=== PATIENT | female | born 1980 | race Hispanic/Latino ===

== ENCOUNTER 2022-02-26 14:02 | Outpatient (CLI) | payer BC | END 2022-02-26 14:03 | disposition home or self-care (01) | LOC: DTY/OP 14:02 | PROVIDERS: ATTEND Specialist | DX: E66.01 Morbid (severe) obesity due to excess calories (principal) | CPT/HCPCS: 97802 ==

== ENCOUNTER 2022-03-22 08:30 | Inpatient (IN) | payer BC ==
[2022-04-06] MEDS ORDERED: Acetaminophen 500 MG TAB ONE (06:30)
[2022-04-06] MEDS ORDERED: Heparin 5,000 UNITS/ML VIAL ONE (06:31)
[2022-04-06] MEDS ORDERED: Ketorolac Tromethamine 30 MG/ML VIAL ONE (06:31)
[2022-04-06] MEDS ORDERED: EPINEPHrine 1 MG/ML AMP ONE (06:54)
[2022-04-06] MEDS ORDERED: Bupivacaine 0.25% HCL 30 ML VIAL ONE (06:54)
[2022-04-06] MEDS ORDERED: Midazolam HCl 2 mg/2 ml Vial ONE (07:25)
[2022-04-06] MEDS ORDERED: fentaNYL Citrate/PF 100 MCG/2 ML SYRINGE ONE (07:26)
[2022-04-06] MEDS ORDERED: HYDROmorphone 2 MG/ML VIAL ONE (07:26)
[2022-04-06] MEDS ORDERED: Propofol 500 MG/50 ML VIAL ONE (07:38)
[2022-04-06] MEDS ORDERED: Sodium Chloride 0.9% 100 ML ONE (07:52)
[2022-04-06] MEDS ORDERED: cefOXitin 2 GM VIAL ONE (07:52)
[2022-04-06] MEDS ORDERED: Glycopyrrolate 0.2 MG/ML 5 ML SYRINGE ONE (08:15)
[2022-04-06] MEDS ORDERED: Phenylephrine 10 MG/ML VIAL ONE (08:15)
[2022-04-06] MEDS ORDERED: PROPOFOL 200 MG/20 ML VIAL ONE (08:15)
[2022-04-06] MEDS ORDERED: Dexamethasone 20 MG/5 ML VIAL ONE (08:15)
[2022-04-06] MEDS ORDERED: Lidocaine 1% PF 5 ML VIAL ONE (08:15)
[2022-04-06] MEDS ORDERED: Rocuronium Bromide 10 MG/ML (10ML VIAL) ONE (08:15)
[2022-04-06] MEDS ORDERED: Ondansetron PF 4 MG/2 ML Vial ONE (08:15)
[2022-04-06] MEDS ORDERED: Meperidine HCl/PF 25 MG/ML VIAL SLOW IVP PRN (10:14)
[2022-04-06] MEDS ORDERED: Promethazine HCl 25 MG/ML VIAL IVPB PRN (10:14)
[2022-04-06] MEDS ORDERED: HYDROmorphone 2 MG/ML VIAL SLOW IVP PRN (10:14)
[2022-04-06] MEDS ORDERED: Fentanyl 100 MCG/2 ML VIAL ONE (10:27)
[2022-04-06] MEDS ORDERED: Promethazine HCl 25 MG/ML VIAL IM PRN (11:39)
[2022-04-06] MEDS ORDERED: Dextrose 5% in Water 1,000 ML IV PRN (11:39)
[2022-04-06] MEDS ORDERED: hydrALAZINE 20 MG/ML VIAL SLOW IVP PRN (11:39)
[2022-04-06] MEDS ORDERED: Dextrose 50% Abboject 50 ML SYRINGE SLOW IVP PRN (11:39)
[2022-04-06] MEDS ORDERED: Pantoprazole 40 MG VIAL IVP SCH (11:39)
[2022-04-06] MEDS ORDERED: Ondansetron PF 4 MG/2 ML Vial IVP PRN (11:39)
[2022-04-06] MEDS ORDERED: Morphine 2 MG/ML VIAL SLOW IVP PRN (11:39)
[2022-04-06] MEDS ORDERED: diphenhydrAMINE 50 MG/ML VIAL IVP PRN (11:39)
[2022-04-06] MEDS ORDERED: Morphine 4 MG/ML VIAL SLOW IVP PRN (11:39)
[2022-04-06] MEDS ORDERED: Metoprolol Tartrate 25 MG TAB PO SCH (13:30)
[2022-04-06] MEDS: D5 1/2 NS w/20 mEq KCL 1,000 ML IV SCH ×2 (13:58→22:15)
[2022-04-06] MEDS: Ketorolac Tromethamine 30 MG/ML VIAL IVP SCH ×2 (13:59→20:09)
[2022-04-06] MEDS: Hydrocodone-Acetamin 15 ML UDCUP PO PRN ×2 (16:44→20:22)
[2022-04-06 17:13] VITALS: BMI 38.2
[2022-04-06] MEDS: Metoprolol Tartrate 25 MG TAB PO SCH (20:12)
[2022-04-06] MEDS ORDERED: Enoxaparin Sodium 40 MG/0.4 ML SYRINGE SC SCH (21:00)
[2022-04-07] MEDS: Ketorolac Tromethamine 30 MG/ML VIAL IVP SCH ×2 (02:22→08:19)
[2022-04-07] MEDS: Hydrocodone-Acetamin 15 ML UDCUP PO PRN ×3 (04:25→12:12)
[2022-04-07] MEDS: D5 1/2 NS w/20 mEq KCL 1,000 ML IV SCH ×2 (05:55→11:49)
[2022-04-07 06:17] LABS: #Lymphocytes 1.3 thou/uL (1.20-3.40); #Monocytes 0.9 thou/uL (0.11-0.59); #Neutrophils 12.9 thou/uL (1.40-6.50); %Eosinophils 0.1 % (0.0-10.0); %Lymphocytes 8.6 % (21.0-51.0); %Monocytes 5.6 % (0.0-10.0); %Neutrophils 85.6 % (42.0-75.0); Hemoglobin 11.8 g/dL (12.0-16.0); Mean Corpuscular HGB CONC 32.4 g/dL (32.0-36.0); Mean Corpuscular Hemoglobin 28.2 pg (27.0-31.0); Mean Platelet Volume 8.5 fL (7.4-10.4); Platelet Count 337 thou/uL (130-400); RBC Distribution Width 14.1 % (11.5-14.5); Red Blood Cell (RBC) Count 4.19 mill/uL (4.20-5.40)
[2022-04-07 06:41] LABS: Anion Gap 11 mmol/L (10-20); BUN (Urea Nitrogen) 4 mg/dL (7.0-18.7); Calc. Creatinine Clearance 150 mL/min (70-130); Calcium 8.2 mg/dL (7.8-10.44); Carbon Dioxide 22 mmol/L (22-29); Chloride 106 mmol/L (98-107); Glucose 154 mg/dL (70-105); Potassium 4.2 mmol/L (3.5-5.1); Sodium 135 mmol/L (136-145)
[2022-04-07] MEDS: Metoprolol Tartrate 25 MG TAB PO SCH (08:18)
[2022-04-07] MEDS ORDERED: NORETHINDRONE 0.35 MG PO SCH (09:00)
[2022-04-07 11:19] VITALS: BP 104/72; TEMP 97.8
== END 2022-04-07 12:55 | disposition home or self-care (01) | DRG 621 ==
LOC: EDSTATUS 03-25 08:30 → SURG A 04-06 06:09
PROVIDERS: ADMIT Specialist; ATTEND Specialist
PROC: 0DB64Z3 Excision of Stomach, Percutaneous Endoscopic Approach, Vertical (ICD-10-PCS; principal; 2022-04-06)
DX: E66.01 Morbid (severe) obesity due to excess calories (principal); Z68.38 Body mass index [BMI] 38.0-38.9, adult; E03.9 Hypothyroidism, unspecified; K21.9 Gastro-esophageal reflux disease without esophagitis; E04.1 Nontoxic single thyroid nodule; I10 Essential (primary) hypertension; D64.9 Anemia, unspecified; Z20.822 Contact with and (suspected) exposure to COVID-19; Z88.2 Allergy status to sulfonamides; Z98.891 History of uterine scar from previous surgery; Z88.8 Allergy status to other drugs, medicaments and biological substances; Z80.42 Family history of malignant neoplasm of prostate; Z79.899 Other long term (current) drug therapy; Z82.49 Family history of ischemic heart disease and other diseases of the circulatory system; Z83.3 Family history of diabetes mellitus; Z72.89 Other problems related to lifestyle; Z79.890 Hormone replacement therapy
CPT/HCPCS: 36415; 80048; 85025; 88307; 88312; J0171; J0694; J1100; J1170; J1644; J1650; J1885; J2250; J2370; J2405; J2704; J3010; J3480; J3490; S0020

== ENCOUNTER 2022-04-01 11:55 | Outpatient (CLI) | payer BC ==
[2022-04-01 14:43] LABS: #Basophils 0.1 10x3/uL (0.0-0.2); #Eosinphils 0.1 10x3/uL (0.0-0.5); %Basophils 0.6 % (0.0-2.0); %Eosinophils 1.5 % (0.0-6.0); %Monocytes 11.5 % (0.0-10.0); %Neutrophils 57.8 % (40.0-75.0); Hemoglobin 12.5 g/dL (12.0-15.5); Mean Corpuscular HGB CONC 32.5 g/dL (32.0-36.0); Mean Corpuscular Volume 83.2 fl (81.6-98.3); Mean Platelet Volume 10.9 fl (7.4-10.4); Platelet Count 390 10x3/uL (150-450); RBC Distribution Width 15.2 % (11.5-14.5); Red Blood Cell (RBC) Count 4.63 10x6/uL (3.90-5.03); White Blood Cell (WBC) Count 8.6 10x3/uL (3.5-10.5)
[2022-04-01 14:56] LABS: BHCG - Serum Negative (NEGATIVE); Pregs Control Bar Appear? YES (CONTROL BAR)
[2022-04-01 14:57] LABS: Pregs Control Background? CLEAR/WHITE (CLR/WHITE)
[2022-04-01 14:58] LABS: Anion Gap 12 mmol/L (10-20); BUN (Urea Nitrogen) 16 mg/dL (7.0-18.7); Calc. Creatinine Clearance 0 mL/min (70-130); Calcium 9.5 mg/dL (7.8-10.44); Carbon Dioxide 27 mmol/L (22-29); Chloride 101 mmol/L (98-107); Glucose 86 mg/dL (70-105); Potassium 4.4 mmol/L (3.5-5.1); Sodium 136 mmol/L (136-145)
== END 2022-04-01 11:56 | disposition home or self-care (01) ==
LOC: LABBT 11:55
PROVIDERS: ATTEND Specialist
DX: Z01.818 Encounter for other preprocedural examination (principal); E66.01 Morbid (severe) obesity due to excess calories; Z20.822 Contact with and (suspected) exposure to COVID-19
CPT/HCPCS: 80048; 84703; 85025; 93005; 93010; U0003; U0005